=== PATIENT | male | born 2000 | race Caucasian/White ===

== ENCOUNTER 2018-01-08 18:10 | Emergency (ER) | payer SELFPAY ==
[2018-01-08] MEDS ORDERED: BACL-1 PO (18:48)
--- NOTE | 2018-01-08 18:50 | ER Report ---
History and Physical Time Seen By MD: 20:20 Hx. of Stated Complaint: PT REPORTS ENTIRE R LEG PAIN, NO KNOWN INJURY HPI/ROS Patient is a 17-year-old male who lives in [place]. He has a history of cerebral palsy since . He comes in complaining of right leg pain. Onset of symptoms began approximately 2 and half weeks ago. 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 He notices leg, which is affected by his cerebral palsy, was very sore afterwards. He didn't think much of it. He iced it. Overnight it got better. He tried to work again but it got painful very quickly. Since that time he's had some progressive discomfort with the leg. He's noted it becoming increasingly stiff. When he has straight it's painful to bend it and vice versa when it sitting bent it's painful to straighten. He has tried treating with Tylenol and ibuprofen without any luck. Approximately 2 weeks ago he was seen in an emergency department in [place]. He and his fiance relates that they did a full workup including ultrasound to look for clot. They told him it was all related to his CP. They discharged him to establish with a primary care provider. Patient never made that follow-up appointment. He's been trying to find the doctor she used as a small child. But has not been able to get any follow-up appointment. Patient notes that he does not do any physical therapy on a regular basis. He has not been on any muscle relaxant medications or other medications for his cerebral palsy. He's noted that he scanned some increasing stiffness here recently. Patient also complains of pain that he notes primarily in the anterior aspect of the leg at the thigh and then in the calf as well. He does not note pain in the joints per se. He has had no swelling. No break in the skin. No circulation issues. He notes no numbness or tingling. He has no pain radiating into his back. He has no trouble with pain in his right arm which is also affected by the cerebral palsy. REVIEW OF SYSTEMS Gen.: No recent fevers chills or illnesses HEENT: Negative Respiratory: No shortness of breath or cough cardiovascular: No chest pain or palpitations GI: Negative Musculoskeletal: As per history of present illness Neuro: As per history of present illness Allergies: Coded Allergies: No Known Drug Allergies (Unverified , 01/08/18) Home Meds Active Scripts Baclofen (BACLOFEN) 10 Mg Tablet, 5 MG PO TID for 14 Days, #30 TAB Prov:MATTY KEE MD 01/08/18 Past Medical/Surgical History Significant for cerebral palsy. Otherwise he denies significant past medical history. Reviewed Nurses Notes: Yes Social History of Patient is visiting from [place] where he lives. He is here only to help somebody move. He is planning to follow up in [place]. Constitutional Vital Sign - Last 24 Hours 01/08/18 01/08/18 18:15 18:54 Temp 98.2 Pulse 61 61 Resp 16 16 B/P (MAP) 139/73 129/77 (94) Pulse Ox 94 94 O2 Delivery Room Air Room Air Physical Exam Gen.: Patient is well-developed, well-nourished, and in no acute distress HEENT: Within normal limits Lungs: Normal respiratory rate and oxygen saturation. Cardiovascular: Regular rate and rhythm Abdomen: Soft. Extremities: Spontaneous range of motion by 4. No peripheral edema. Right upper extremity does show some minimal spasticity has good movement. Right lower extremity shows some muscle atrophy as compared to the left lower extremity. He is very stiff with hip flexors and flexors at knee and ankle as well. This is both passive and actively. Deep tendon reflexes 2+ to 3+ and brisk at the patella. Sensation is intact. Capillary refill is intact. On the leg, there is no swelling, no tenderness to palpation. Joints show no effusion or erythema. Neurologic: Alert oriented and appropriate. Sensorium is intact. Remainder of neurologic exam is unremarkable with the exception of the underlying aspects of the cerebral palsy on the right upper and lower extremity Skin: Warm pink and dry without rash. Normal capillary refill. Medical Decision Making ED Course/Re-evaluation ED Course Patient was brought into the department and evaluated. Physical examination was done. After discussion of history and his physical, it is my believe that his symptoms are consistent with an aggravation of his cerebral palsy. Patient is noted to have increased pain in the leg affected by his cerebral palsy without any obvious new injury other than some overuse. He notes that he feels tightness in the muscles. I discussed at length with patient that I do not think any imaging is required or further workup in the department. I do believe he needs to establish the follow-up in [place], where he is living, as was previously instructed by the [place] emergency department. Patient should establish with a primary care provider at [facility] get specialty referral if needed. I have recommended that he restart physical therapy and stretching. I will cover him short-term with some baclofen. I have recommended Tylenol and ibuprofen in addition on an as- needed basis. Activities may be limited to tolerance. Decision to Disposition Date: January 08, 2018 Decision to Disposition Time: 18:50 Depart Departure Latest Vital Signs Vital Signs Date Time Temp Pulse Resp B/P (MAP) Pulse Ox O2 Delivery O2 Flow Rate FiO2 01/08/18 18:54 61 16 129/77 (94) 94 Room Air 01/08/18 18:15 98.2 Impression: Primary Impression: Leg pain Additional Impression: Cerebral palsy Condition: Condition Unchanged Disposition: HOME OR SELF-CARE New Scripts Baclofen (BACLOFEN) 10 Mg Tablet 5 MG PO TID for 14 Days, #30 TAB Prov: MATTY KEE MD 01/08/18 Departure Forms: ER Transition Record, Medications Reconciliation, Patient Portal Information Additional Instructions: Keep follow up with the doctor you were referred to from [place]. This is the best way into a medical system and they can refer to specialty if needed Problem Qualifiers Primary Impression: Leg pain Laterality: right Qualified Codes: M79.604 - Pain in right leg Additional Impression: Cerebral palsy Cerebral palsy type: unspecified type Qualified Codes: G80.9 - Cerebral palsy, unspecified MATTY KEE MD January 08, 2018 18:50
[2018-01-08 18:54] VITALS: BP 129/77
== END 2018-01-08 18:57 | disposition home or self-care (01) ==
LOC: ER 18:24
DX: M79.604 Pain in right leg (principal); G80.9 Cerebral palsy, unspecified
CPT/HCPCS: 99282